=== PATIENT | male | born 1945 | race Caucasian/White ===

== ENCOUNTER 2019-11-29 10:46 | Emergency (ER) | payer OTHER ==
[2019-11-29] MEDS ORDERED: Sodium Chloride 0.9% 10 ML Syringe FLUSH PRN (10:49)
[2019-11-29] MEDS: Aspirin 81 MG Tab.Chew PO ONE (10:55)
--- NOTE | 2019-11-29 11:19 | CR ---
[id number] RAD/RAD Chest PA or AP 1V EXAM: RAD Chest PA or AP 1V INDICATION: CHEST PAIN, DIZZINESS. COMPARISON: None. DISCUSSION: Cardiomegaly and central vascular congestion. Widening of the right paratracheal stripe, nonspecific. Lungs are clear. No pleural effusion or pneumothorax. IMPRESSION: Widening of the right paratracheal stripe. Contrast-enhanced CT examination of the chest is recommended to exclude an underlying mass or lymphadenopathy. Otherwise, no significant abnormality identified. Chinedu Garvin MD 11/29/19 1118 Thank you for allowing us to participate in the care of your patient.
[2019-11-29 11:26] LABS: PTT,PARTIAL THROMBOPLSTIN TIME 24.6 SEC (25.6-32.8)
[2019-11-29 11:32] LABS: ANION GAP 12.4 mmol/L (10-20); CHLORIDE,CL 102 mmol/L (98-107); SODIUM,NA 138 mmol/L (136-145)
[2019-11-29] MEDS: Sodium Chloride 0.9% 1,000 ML IV ONE (12:00)
--- NOTE | 2019-11-29 12:04 | EDM.PDOC ---
ED HPI GENERAL MEDICAL PROBLEM - General Chief Complaint: General Time Seen by Provider: 11/29/19 10:49 Source of Information: Reports: Patient, Family - History of Present Illness INITIAL COMMENTS - FREE TEXT/NARRATIVE: Jose is a 74 y/o male who is brought to the ER by his after he started to feel dizzy at home. He has a history of low blood pressure and his took his BP at home and it was 90s/60s. He reports feeling weak and dizzy when he stands up. If he lays back down things are fine. He also was started on a new muscle relaxer by his [facility] for low back pain. He had had chronic back issues for many years and had a recent revision surgery in April 2019. He denies that the room spins around him. No nausea or vomiting. He had one shooting pain in his chest, but no more. He has had a thoracectomy for lung cancer and most of his right lung is removed. No SOB. He does receive regular care at [facility]. Left Chest Pain Score (Numeric/FACES): 3 - Related Data Allergies Allergy/AdvReac Type Severity Reaction Status Date / Time No Known Allergies Allergy Verified 11/29/19 11:58 Home Meds: Home Meds . [Unable to Verify Home Med List] 11/29/19 [History] ED ROS GENERAL - Review of Systems Review Of Systems: See Below Constitutional: Reports: Weakness, Fatigue HEENT: Reports: No Symptoms Respiratory: Reports: No Symptoms Cardiovascular: Reports: No Symptoms Endocrine: Reports: No Symptoms GI/Abdominal: Reports: No Symptoms : Reports: No Symptoms Musculoskeletal: Reports: No Symptoms Skin: Reports: No Symptoms Neurological: Reports: Dizziness, Weakness Psychiatric: Reports: No Symptoms Hematologic/Lymphatic: Reports: No Symptoms Immunologic: Reports: No Symptoms ED EXAM, GENERAL - Physical Exam Exam: See Below Exam Limited By: No Limitations General Appearance: Alert, WD/WN (Elderly male, NAD. He is unsteady but can get into the wheelchair with standby assist.) Eye Exam: Bilateral Eye: Nystagmus (horizontal), PERRL Ears: Normal External Exam, Normal Canal, Hearing Grossly Normal, Normal TMs Nose: Normal Inspection, Normal Mucosa Throat/Mouth: Normal Inspection, Normal Lips, Normal Voice Head: Atraumatic, Normocephalic Neck: Normal Inspection, Supple, Non-Tender Respiratory/Chest: No Respiratory Distress, Lungs Clear (absent lung sounds in the right mid to lower lobes) Cardiovascular: Normal Peripheral Pulses, Regular Rate, Rhythm, No Edema, No JVD GI/Abdominal: Normal Bowel Sounds, Soft, Non-Tender (Male) Exam: Deferred Rectal (Males) Exam: Deferred Back Exam: Normal Inspection Extremities: Normal Inspection, No Pedal Edema, Normal Capillary Refill Neurological: Alert, Oriented, CN II-XII Intact Psychiatric: Normal Affect, Normal Mood Skin Exam: Warm, Dry, Intact, Normal Color Lymphatic: No Adenopathy EKG INTERPRETATION EKG Date: 11/29/19 Time: 10:40 Rhythm: NSR Rate (Beats/Min): 53 [place]: Normal P-Wave: Present QRS: Normal ST-T: Normal QT: Normal Comparison: NA - No Prior EKG EKG Interpretation Comments: Sinus Rhythm Course - Vital Signs Text/Narrative:: 1049 The patient was seen by the [employer]. Labs, EKG, and CXR ordered on arrival. He complained of dizziness and low BP, but had a short bit of chest pain prior to arrival but it is now resolved. Will given Aspirin 324mg po. 1150 Orthostatic BP positive. Labs reviewed, BUN 19. NS 1 liter ordered. 1350 IV fluids done. Orthostatic BPs repeated and much improved. Patient had no dizziness upon standing or position changes. Will discharge to home. Discharge instructions were given and the patient left the ER in stable condition. Last Recorded V/S: Last Vital Signs Temp 36.3 C 11/29/19 10:46 Pulse 53 L 11/29/19 10:46 Resp 16 11/29/19 10:46 BP 109/69 11/29/19 10:46 Pulse Ox 98 11/29/19 10:46 Orthostatic Blood Pressure [ 89/54 Standing] Orthostatic Blood Pressure [ 96/59 Sitting] Orthostatic Blood Pressure [ 120/68 Supine] - Orders/Labs/Meds Orders: Active Orders 24 hr Category Date Time Status EKG Documentation Completion [RC] STAT Care 11/29/19 10:50 Active Orthostatic Vital Signs [RC] ASDIRECTED Care 11/29/19 11:30 Active Sodium Chloride 0.9% [Saline Flush] Med 11/29/19 10:49 Active 10 ml FLUSH ASDIRECTED PRN Saline Lock Insert [OM.PC] Stat Oth 10/06/20 10:50 Ordered Medication Orders Sodium Chloride (Saline Flush) 10 ml FLUSH ASDIRECTED PRN PRN Reason: Keep Vein Open Labs: Laboratory Tests 11/29/19 11/29/19 11/29/19 Range/Units 11:02 11:02 11:02 WBC 5.2 (4.0-10.0) x10^3/uL RBC 4.16 L (4.5-6.0) x10^6/uL Hgb 12.5 L (14.0-18.0) g/dL Hct 37.3 L (40.0-52.0) % MCV 89.7 (78.0-93.0) fL MCH 30.0 (26.0-32.0) pg MCHC 33.5 (32.0-36.0) g/dL RDW Coeff of Sameer 12.6 (10.0-15.0) % Plt Count 144 (130-400) x10^3/uL Neut % (Auto) 69.0 (50.0-80.0) % Lymph % (Auto) 21.3 L (25.0-50.0) % [place] % (Auto) 6.0 (2.0-11.0) % Eos % (Auto) 3.3 (0.0-4.0) % Baso % (Auto) 0.4 (0.2-1.2) % PT 9.9 (9.5-12.3) SEC INR 0.9 L (2.0-3.5) APTT 24.6 L (25.6-32.8) SEC Sodium 138 (136-145) mmol/L Potassium 4.4 (3.5-5.1) mmol/L Chloride 102 (98-107) mmol/L Carbon Dioxide 28 (21-32) mmol/L Anion Gap 12.4 (10-20) mmol/L BUN 19 H (7-18) mg/dL Creatinine 1.1 (0.70-1.30) mg/dL Est Cr Clr Drug Dosing TNP Estimated GFR (MDRD) > 60 Glucose 128 H (74-106) mg/dL Calcium 8.9 (8.5-10.1) mg/dL Corrected Calcium 9.22 (8.5-10.1) mg/dL Magnesium 2.2 (1.8-2.4) mg/dL Total Bilirubin 1.1 H (0.2-1.0) mg/dL AST 22 (15-37) U/L ALT 37 (16-63) U/L Alkaline Phosphatase 116 (46-116) U/L Troponin I < 0.017 (<=0.056) ng/mL Total Protein 6.8 (6.4-8.2) g/dL Albumin 3.6 (3.4-5.0) g/dL Globulin 3.2 Albumin/Globulin Ratio 1.13 Urine Color (YELLOW) Urine Appearance (CLEAR) Urine pH (5.0-8.0) Ur Specific [place] Urine Protein (NEGATIVE) mg/dL Urine Glucose (UA) (NEGATIVE) mg/dL Urine Ketones (NEGATIVE) mg/dL Urine Occult Blood (NEGATIVE) Urine Nitrite (NEGATIVE) Urine Bilirubin (NEGATIVE) Urine Urobilinogen (0.2) EU/dL Ur Leukocyte Esterase (NEGATIVE) 11/29/19 Range/Units 12:15 WBC (4.0-10.0) x10^3/uL RBC (4.5-6.0) x10^6/uL Hgb (14.0-18.0) g/dL Hct (40.0-52.0) % MCV (78.0-93.0) fL MCH (26.0-32.0) pg MCHC (32.0-36.0) g/dL RDW Coeff of Sameer (10.0-15.0) % Plt Count (130-400) x10^3/uL Neut % (Auto) (50.0-80.0) % Lymph % (Auto) (25.0-50.0) % [place] % (Auto) (2.0-11.0) % Eos % (Auto) (0.0-4.0) % Baso % (Auto) (0.2-1.2) % PT (9.5-12.3) SEC INR (2.0-3.5) APTT (25.6-32.8) SEC Sodium (136-145) mmol/L Potassium (3.5-5.1) mmol/L Chloride (98-107) mmol/L Carbon Dioxide (21-32) mmol/L Anion Gap (10-20) mmol/L BUN (7-18) mg/dL Creatinine (0.70-1.30) mg/dL Est Cr Clr Drug Dosing Estimated GFR (MDRD) Glucose (74-106) mg/dL Calcium (8.5-10.1) mg/dL Corrected Calcium (8.5-10.1) mg/dL Magnesium (1.8-2.4) mg/dL Total Bilirubin (0.2-1.0) mg/dL AST (15-37) U/L ALT (16-63) U/L Alkaline Phosphatase (46-116) U/L Troponin I (<=0.056) ng/mL Total Protein (6.4-8.2) g/dL Albumin (3.4-5.0) g/dL Globulin Albumin/Globulin Ratio Urine Color Yellow (YELLOW) Urine Appearance Clear (CLEAR) Urine pH 6.5 (5.0-8.0) Ur Specific [place] 1.020 Urine Protein Negative (NEGATIVE) mg/dL Urine Glucose (UA) Negative (NEGATIVE) mg/dL Urine Ketones Negative (NEGATIVE) mg/dL Urine Occult Blood Negative (NEGATIVE) Urine Nitrite Negative (NEGATIVE) Urine Bilirubin Negative (NEGATIVE) Urine Urobilinogen 1.0 (0.2) EU/dL Ur Leukocyte Esterase Negative (NEGATIVE) Meds: Medications Generic Name Dose Route Start Last Admin Trade Name Freq PRN Reason Stop Dose Admin Sodium Chloride 10 ml 11/29/19 10:49 Saline Flush FLUSH ASDIRECTED PRN Keep Vein Open Discontinued Medications Generic Name Dose Route Start Last Admin Trade Name Freq PRN Reason Stop Dose Admin Aspirin 324 mg 11/29/19 11:12 11/29/19 10:55 Aspirin PO 11/29/19 11:13 324 mg ONETIME ONE Administration Sodium Chloride 1,000 mls @ 999 mls/hr 11/29/19 12:02 Normal Saline IV 11/29/19 13:02 ONETIME ONE Departure - Departure Time of Disposition: 13:58 Disposition: Home, Self-Care 01 Clinical Impression: Orthostatic hypotension, Dizziness - Discharge Information *PRESCRIPTION DRUG MONITORING PROGRAM REVIEWED*: No *COPY OF PRESCRIPTION DRUG MONITORING REPORT IN PATIENT RAFAEL: No Instructions: Orthostatic Hypotension, Dizziness Referrals: PCP,None [Primary Care Provider] - Forms: ED Department Discharge Additional Instructions: -Stay well hydrated. -Resume meds as prescribed by PCP -Carefully resume the Cyclobenzaprine to see if your dizziness returns, if it does please discusss with your PCP -Follow up with your PCP in the next week for a recheck and Blood pressure check. -Return to the ER for any concerns Sepsis Event Note (ED) - Evaluation Sepsis Screening Result: No Definite Risk - Focused Exam Vital Signs: Vital Signs Temp Pulse Resp BP Pulse Ox 11/29/19 10:46 36.3 C 53 L 16 109/69 98 - My Orders Last 24 Hours: My Active Orders 11/29/19 10:49 Sodium Chloride 0.9% [Saline Flush] 10 ml FLUSH ASDIRECTED PRN 11/29/19 10:50 EKG Documentation Completion [RC] STAT Saline Lock Insert [OM.PC] Stat 11/29/19 11:30 Orthostatic Vital Signs [RC] ASDIRECTED - Assessment/Plan Last 24 Hours: My Active Orders 11/29/19 10:49 Sodium Chloride 0.9% [Saline Flush] 10 ml FLUSH ASDIRECTED PRN 11/29/19 10:50 EKG Documentation Completion [RC] STAT Saline Lock Insert [OM.PC] Stat 11/29/19 11:30 Orthostatic Vital Signs [RC] ASDIRECTED Assessment:: 1)Orthostatic Hypotension 2)Dizziness, Resolved Plan: -Discharge to home -Resume home meds -[facility] for [facility]ck
== END 2019-11-29 14:08 | disposition home or self-care (01) ==
LOC: VM.ED 10:46
DX: I95.1 Orthostatic hypotension (principal)
CPT/HCPCS: 36415; 71045; 80053; 81003; 83735; 84484; 85025; 85610; 85730; 93005; 96360; 99284; 99285-25; A9270-GY; J7030